=== PATIENT | male | born 1955 | race Caucasian/White ===

== ENCOUNTER 2018-10-01 15:17 | Emergency (ER) | payer OTHER ==
--- NOTE | 2018-10-01 16:16 | EDM.PDOC ---
ED HPI GENERAL MEDICAL PROBLEM - General Chief Complaint: Trauma Stated Complaint: KICKED BY A COW Time Seen by Provider: 10/01/18 16:00 Source of Information: Reports: Patient History Limitations: Reports: No Limitations - History of Present Illness INITIAL COMMENTS - FREE TEXT/NARRATIVE: Patient is a 63-year-old male presents ED complaining of left anterior knee pain. Patient states he was kicked by a cow on the medial aspect of his knee. Since then he has noted increasing pain with weight bearing. States he is unable to ambulate since it gives out. Pain is localized with no radiation. There is no sensorimotor deficits. He has no prior injury to the affected knee. Denies trauma to his head, neck, or back. Denies being trampled by the cow. Left Knee Pain Score (Numeric/FACES): 1 - Related Data Allergies Allergy/AdvReac Type Severity Reaction Status Date / Time No Known Allergies Allergy Verified 10/01/18 15:44 Home Meds: Home Meds Acetaminophen/HYDROcodone [[place] 325-5 MG] 1 tab PO Q6H PRN #12 tablet 10/01/18 [Rx] Bisoprolol/Hydrochlorothiazide [Bisoprolol/HCTZ 10-6.25 MG] 1 tab PO DAILY 10/01 [History] Losartan [Cozaar] 100 mg PO DAILY 10/01/18 [History] Omeprazole 20 mg PO DAILY 10/01/18 [History] Past Medical History HEENT History: Reports: Impaired Vision Cardiovascular History: Reports: Hypertension Gastrointestinal History: Reports: GERD - Past Surgical History Musculoskeletal Surgical History: Reports: Other (See Below) Other Musculoskeletal Surgeries/Procedures:: Broken rib Social & Family History - Family History Family Medical History: Noncontributory - Tobacco Use Smoking Status *Q: Never Smoker Second Hand Smoke Exposure: No - Caffeine Use Caffeine Use: Reports: None - Recreational Drug Use Recreational Drug Use: No Review of Systems - Review of Systems Review Of Systems: ROS reveals no pertinent complaints other than HPI. ED EXAM, GENERAL - Physical Exam Exam: See Below Exam Limited By: No Limitations General Appearance: Alert, WD/WN, No Apparent Distress Ears: Hearing Grossly Normal Nose: Normal Inspection Throat/Mouth: Normal Voice, No Airway Compromise Neck: Normal Inspection, Supple Respiratory/Chest: No Respiratory Distress, Lungs Clear, Normal Breath Sounds, No Accessory Muscle Use Cardiovascular: Normal Peripheral Pulses, Regular Rate, Rhythm, No Murmur Peripheral Pulses: 3+: Posterior Tibial (L), Dorsalis Pedis (L) Extremities: Other (Bony abdomen eyes noted to the patella with palpation with some increased swelling. Pain noted with palpation. Patient is able to flex and extend his knee with minimal discomfort. No provocative testing was obtained at this point. Will wait for imaging to come back to ascertain what type of bony abdomen eyes are present this point. If significant CT of the knee may be required. Pulses are intact. No sensorimotor deficits noted.) Neurological: Alert, Oriented, CN II-XII Intact, Normal Cognition, No Motor/ Sensory Deficits Psychiatric: Normal Affect, Normal Mood Skin Exam: Warm, Dry, Intact, Normal Color, No Rash Course - Vital Signs Last Recorded V/S: Last Vital Signs Temp 98.3 F 10/01/18 15:46 Pulse 60 10/01/18 15:46 Resp 14 10/01/18 15:46 BP 159/86 H 10/01/18 15:46 Pulse Ox 96 10/01/18 15:46 - Orders/Labs/Meds Orders: Active Orders 24 hr Category Date Time Status Knee 3V Lt [CR] Stat Exams 10/01/18 16:11 Taken Knee wo Cont Lt [CT] Stat Exams 10/01/18 16:40 Taken - Re-Assessments/Exams Free Text/Narrative Re-Assessment/Exam: Trauma minor called due to mechanism of injury. Patient has no other complaints upon examination. Discussed patient with Dr. Colon and he agrees with plan. X-ray of the left knee with sunrise view will be obtained. 10/01/18 16:40 X-ray of the left knee reviewed with Dr. Colon. Findings concerning for avulsion of quadricep tendon. Suggested CT of the left knee without. CT Knee Impression: 1. Multiple small bony densities which appear to be old. 2. Medial and lateral joint space narrowing. 3. Nothing acute is definitely appreciated. If patient's symptoms suggest possible soft tissue injury, MRI could be considered to further evaluate. Knee immobilizer applied with crutches. Patient will be discharged home with instructions as documented. Return precautions discussed with patient. Patient had no further questions or concerns. Departure - Departure Time of Disposition: 18:39 Disposition: Home, Self-Care 01 Condition: Good Clinical Impression: Left knee sprain Qualifiers: Encounter type: initial encounter Involved ligament of knee: unspecified ligament Qualified Code(s): S83.92XA - Sprain of unspecified site of left knee, initial encounter Quadriceps muscle rupture Qualifiers: Encounter type: initial encounter Laterality: left Qualified Code(s): S76.112A - Strain of left quadriceps muscle, fascia and tendon, initial encounter - Discharge Information Prescriptions: Acetaminophen/HYDROcodone [[place] 325-5 MG] 1 tab PO Q6H PRN #12 tablet PRN Reason: Pain (Severe 7-10) Instructions: Knee Sprain, Adult, [id number], Muscle Strain, [id number], Quadriceps Tendon Tear or Disruption Referrals: Deshawn Meredith MD [Primary Care Provider] - Chris Wells MD [Physician] - Forms: ED Department Discharge Additional Instructions: You are to be nonweightbearing, toe-touch only for balance, utilize crutches to ambulate. Elevate when able to reduce any swelling and pain. For mild to moderate pain take Tylenol and ibuprofen in alternating fashion. Apply ice to the affected area 3 times a day, 30 minutes in duration, do not apply ice directly on the skin. For severe pain take [place] one tab every 6 hours. Do not take [place] and Tylenol together. Do not drive while taking the [place]. Call and make an appointment to see orthopedic surgeon of your choice this coming week. Contact information for Dr. Wells has been provided. Please return back to the ED if he develops any new or worsening symptoms. - My Orders Last 24 Hours: My Active Orders 10/01/18 16:11 Knee 3V Lt [CR] Stat 10/01/18 16:40 Knee wo Cont Lt [CT] Stat - Assessment/Plan Last 24 Hours: My Active Orders 10/01/18 16:11 Knee 3V Lt [CR] Stat 10/01/18 16:40 Knee wo Cont Lt [CT] Stat
--- NOTE | 2018-10-02 08:24 | CR ---
Left knee: Three views of the left knee were obtained. Comparison: No previous left knee study. Slight medial joint space narrowing is seen. Small bony density is noted off the superior patella which appears to be old. No joint effusion is seen. No acute fracture or other abnormality is appreciated. Impression: 1. Incidental findings as noted above. Nothing acute is definitely appreciated. Diagnostic code #2
--- NOTE | 2018-10-03 07:43 | CT ---
CT left knee Technique: Multiple axial sections were obtained through the left knee. Reconstructed coronal and sagittal images were reviewed. Comparison: Previous plain film knee exam performed earlier on the same day (4: 16 PM). Findings: Small bony density is noted posteriorly off the lateral knee slightly above the fibular head. Other bony densities are seen posterior to the medial femoral condyle. Additional bony density is seen off the anterior aspect of the medial femoral condyle. These all appear well corticated and are felt to be old. Multiple calcifications are also seen off the superior patella which are felt to be old. Spurring is noted within the intercondylar notch as well as off the tibial spines. Medial and lateral joint space narrowing is seen. No acute fracture is appreciated. Impression: 1. Multiple small bony densities which appear to be old. 2. Medial and lateral joint space narrowing. 3. Nothing acute is definitely appreciated. If patient's symptoms suggest possible soft tissue injury, MRI could be considered to further evaluate. Diagnostic code #3 MTDD
== END 2018-10-01 18:50 | disposition home or self-care (01) ==
LOC: JD.ED 15:17
DX: S83.92XA Sprain of unspecified site of left knee, initial encounter (principal); S76.112A Strain of left quadriceps muscle, fascia and tendon, initial encounter; Z79.899 Other long term (current) drug therapy; I10 Essential (primary) hypertension; W55.22XA Struck by cow, initial encounter
CPT/HCPCS: 73562-26-LT; 73562-LT; 73700-26-LT; 73700-LT; 99284

== ENCOUNTER 2020-08-17 21:39 | Emergency (ER) | payer OTHER, MEDICARE ==
[2020-08-17] MEDS ORDERED: Diphtheria,Pertussis(Acell),Tetanus Vaccine 0.5 ML Syringe IM ONE (22:00)
[2020-08-17] MEDS ORDERED: Lidocaine 1% 10 ML MDV INJECT ONE (22:00)
[2020-08-17] MEDS ORDERED: Bupivacaine 0.5% 10 ML SDV INJECT ONE (22:00)
--- NOTE | 2020-08-17 22:46 | EDM.PDOC ---
ED HPI GENERAL MEDICAL PROBLEM - General Chief Complaint: Laceration Stated Complaint: LT RING FINGER LAC Time Seen by Provider: 08/17/20 21:49 Source of Information: Reports: Patient History Limitations: Reports: No Limitations - History of Present Illness INITIAL COMMENTS - FREE TEXT/NARRATIVE: Mr. Rosenberg is a very pleasant 65-year-old gentleman who now presents the ED after accidentally cutting the volar pad of the distal phalanx of his left 4th finger with a knife around noon today, while cutting open a can. He is otherwise uninjured. The patient does not recall when his last tetanus vaccination was, but states that it could easily be more than 10 years ago. Here in the ED, the patient's initial BP is found to be elevated at 168/86, otherwise, he is hemodynamically stable, afebrile, saturating 95% on room air. Other than his left 4th finger injury, the patient denies having a recent fever, chills, sore throat, ear pain, nasal or sinus congestion, cough, dyspnea, chest pain, palpitations, nausea, vomiting, constipation, diarrhea, abdominal pain, urinary symptoms, recent weight gain or weight loss, recent bloody bowel movements or black bowel movements, recent joint aches, headaches, or rashes. The patient's PCP is Dr. Deshawn Meredith. His Orthopedic Surgeon is Dr. Emiliano Tom. He received an influenza vaccine this season. - Related Data Allergies Allergy/AdvReac Type Severity Reaction Status Date / Time No Known Allergies Allergy Verified 08/17/20 21:48 Home Meds: Home Meds Acetaminophen/HYDROcodone [[place] 325-5 MG] 1 tab PO Q6H PRN #12 tablet 10/01/18 [Rx] Bisoprolol/Hydrochlorothiazide [Bisoprolol/HCTZ 10-6.25 MG] 1 tab PO DAILY 10/01/18 [History] Losartan [Cozaar] 100 mg PO DAILY 10/01/18 [History] Omeprazole 20 mg PO DAILY 10/01/18 [History] Past Medical History HEENT History: Reports: Impaired Vision Cardiovascular History: Reports: Hypertension Gastrointestinal History: Reports: GERD Musculoskeletal History: Reports: Osteoarthritis - Past Surgical History GI Surgical History: Reports: Appendectomy, Cholecystectomy (1989) Musculoskeletal Surgical History: Reports: Knee Replacement (left) Social & Family History - Family History Family Medical History: No Pertinent Family History - Tobacco Use Tobacco Use Status *Q: Former Tobacco User Tobacco Use Within Last Twelve Months: Smokeless Tobacco (Quit chewing tobacco 1989) Years of Tobacco use: 15 Packs/Tins Daily: 1.5 Month/Year Tobacco Last Used: Quit 1989 Second Hand Smoke Exposure: No - Caffeine Use Caffeine Use: Reports: Coffee - Alcohol Use Alcohol Use History: No - Recreational Drug Use Recreational Drug Use: No - Living Situation & Occupation Living situation: Reports: Single, with Significant Other (Girlfriend) Occupation: Employed ([employer]) ED ROS GENERAL - Review of Systems Review Of Systems: Comprehensive ROS is negative, except as noted in HPI. ED EXAM, SKIN/RASH Exam: See Below Exam Limited By: No Limitations General Appearance: Alert, WD/WN, No Apparent Distress Extremities: Other (There is an approximately 4.5 cm flap laceration to the volar aspect of the distal phalanx of the patient's left 4th finger. The wound is not actively bleeding. No tendon involvement. Neurovascular status of the left 4th finger is intact.) ED SKIN PROCEDURES - Laceration/Wound Repair Left Hand Appearance: Subcutaneous, Irregular (flap laceration), Clean Distal NVT: Neuro & Vascular Intact, No Tendon Injury Anesthetic Type: Digital Local Anesthesia - Lidocaine (Xylocaine): 1% Plain (50:50 admixture) Local Anesthesia - Bupivicaine (Marcaine): 0.5% Plain (50:50 admixture) Local Anesthetic Volume: 4cc Skin Prep: Providone-Iodine (Betadine) Exploration/Debridement/Repair: Wound Explored, In a Bloodless Field, Explored to Base, No Foreign Material Found Closed with: Sutures Lac/Wound length In cm: 4.5 Suture Size: 3-0 # of Sutures: 8 Suture Type: Nylon (Ethilon), Interrupted, Simple Sterile Dressing Applied: Nurse Tetanus Status Addressed: Yes Complications: No Course - Vital Signs Last Recorded V/S: Last Vital Signs Temp 36.6 C 08/17/20 21:46 Pulse 74 08/17/20 21:46 Resp 16 08/17/20 21:46 BP 168/86 H 08/17/20 21:46 Pulse Ox 95 08/17/20 21:46 - Orders/Labs/Meds Orders: Active Orders 24 hr Category Date Time Status Vaccines to be Administered [RC] PER UNIT ROUTINE Care 08/17/20 22:01 Active Meds: Medications Discontinued Medications Generic Name Dose Route Start Last Admin Trade Name Sheyla PRN Reason Stop Dose Admin Bupivacaine HCl 10 ml 08/17/20 22:00 08/17/20 22:45 Sensorcaine-Mpf 0.5% INJECT 08/17/20 22:01 10 ml ONETIME ONE Administration Diphtheria/Tetanus/Acell Pertussis 0.5 ml 08/17/20 22:00 Adacel IM 08/17/20 22:01 .ONCE ONE Lidocaine HCl 10 ml 08/17/20 22:00 12 22:45 Xylocaine 1% INJECT 08/17/20 22:01 10 ml ONETIME ONE Administration - Re-Assessments/Exams Free Text/Narrative Re-Assessment/Exam: 08/17/20 22:41 Following a digital block using a 50:50 admixture of bupivacaine 0.5% without lidocaine and lidocaine 1% without epinephrine, the patient achieved good local anesthesia. I closed the flap laceration with 8 simple interrupted sutures using 3-0 Ethilon. The patient tolerated the procedure well. The wound will be dressed by Maddi PALACIOS. I will prescribe Keflex via [facility]. Departure - Departure Time of Disposition: 22:44 Disposition: Home, Self-Care 01 Condition: Good Clinical Impression: Laceration of left ring finger - Discharge Information *PRESCRIPTION DRUG MONITORING PROGRAM REVIEWED*: Not Applicable *COPY OF PRESCRIPTION DRUG MONITORING REPORT IN PATIENT ELLI: Not Applicable Referrals: Deshawn Meredith MD [Primary Care Provider] - Emiliano Tom MD [Ordering Only Provider] - Forms: ED Department Discharge Additional Instructions: You were seen in the emergency room after cutting the pad of your left ring finger. Your wound was closed with 8 sutures in the ER. Keep the wound clean with ordinary soap and water when you bathe. Pat dry, then apply a clean bandage, daily. Do not soak the wound, such as in the bathtub or swimming. The sutures should be ready for removal by 08/26/2020. They can be r emoved at the walk-in clinic, by a nurse at your doctor's office, or the in the ER. You have been prescribed the antibiotic Keflex. Take 1 tablet of Keflex every 12 hours, as prescribed. Finish the entire prescription unless told otherwise by your doctor. The wound should not get infected, however, if there are any concerns, such as significant swelling, redness, inordinate pain, or drainage, please either follow-up with your PCP, Dr. Deshawn Meredith, or return to the ER for reevaluation. Sepsis Event Note (ED) - Evaluation Sepsis Screening Result: No Definite Risk - Focused Exam Vital Signs: Vital Signs Temp Pulse Resp BP Pulse Ox 08/17/20 21:46 36.6 C 74 16 168/86 H 95 - My Orders Last 24 Hours: My Active Orders 08/17/20 22:01 Vaccines to be Administered [RC] PER UNIT ROUTINE - Assessment/Plan Last 24 Hours: My Active Orders 08/17/20 22:01 Vaccines to be Administered [RC] PER UNIT ROUTINE
== END 2020-08-17 23:05 | disposition home or self-care (01) ==
LOC: EDBD 21:39 → JD.ED 21:39
DX: S61.215A Laceration without foreign body of left ring finger without damage to nail, initial encounter (principal); I10 Essential (primary) hypertension; K21.9 Gastro-esophageal reflux disease without esophagitis; Z79.899 Other long term (current) drug therapy; Z87.891 Personal history of nicotine dependence; Z23 Encounter for immunization; W26.0XXA Contact with knife, initial encounter
CPT/HCPCS: 12002; 90471; 99282; J2001; J3490; 99283

== ENCOUNTER 2023-02-09 16:38 | Emergency (ER) | payer MEDICARE, OTHER ==
[2023-02-09] MEDS ORDERED: Sodium Chloride 0.9% 10 ML Syringe FLUSH PRN (17:31)
[2023-02-09 18:14] LABS: HEMATOCRIT 41.3 % (40.1-51.0); HEMOGLOBIN 14.3 gm/dl (13.7-17.5); MEAN CORPUSCULAR HEMOGLOBIN 29.8 pg (25.7-32.2); MEAN CORPUSCULAR HGB CONC 34.6 g/dl (32.2-35.5); MEAN PLATELET VOLUME 10.7 fl (9.4-12.3); PLATELET COUNT,PLT 298 K/mm3 (163-337); WHITE BLOOD CELL COUNT,WBC 8.79 K/mm3 (4.23-9.07)
[2023-02-09 18:29] LABS: BAND PERCENT MAN 3 % (0-10); BASOPHILS PERCENT MAN 0 (0.2-1.2); EOSINOPHILS PERCENT MAN 0 % (0.8-7.0); LYMPHOCYTES % ATYPICAL MANUAL 2 %; LYMPHOCYTES PERCENT MAN 13 % (20-40); MONOCYTES PERCENT MAN 6 % (2-10)
[2023-02-09 18:31] LABS: INR 1.05; PROTHROMBIN TIME 11.2 SECONDS (9.7-12.0)
[2023-02-09 18:33] LABS: PLATELET COUNT ESTIMATE ADEQUATE
[2023-02-09 18:49] LABS: A/G RATIO 0.9 (1-2); ALANINE AMINOTRANSFERASE,ALT 57 U/L (16-63); ALBUMIN 3.5 g/dl (3.4-5.0); ALKALINE PHOSPHATASE 85 U/L (46-116); ANION GAP 13.8 (5-15); ASPARTATE AMNIOTRANSFERASE,AST 41 U/L (15-37); BILIRUBIN TOTAL 0.6 mg/dL (0.2-1.0); BLOOD UREA NITROGEN,BUN 21 mg/dL (7-18); BUN/CREATININE RATIO 19.1 (14-18); CALCIUM 8.9 mg/dL (8.5-10.1); CARBON DIOXIDE,CO2 26 mEq/L (21-32); CHLORIDE,CL 102 mEq/L (98-107); CREATINE KINASE,CK 95 U/L (39-308); CREATININE 1.1 mg/dL (0.7-1.3); ESTIMATED GFR 73 mL/min (>60); GLUCOSE RANDOM 191 mg/dL (70-99); MAGNESIUM 1.5 mg/dL (1.8-2.4); POTASSIUM,K 3.8 mEq/L (3.5-5.1); PROTEIN TOTAL,TP 7.6 g/dl (6.4-8.2); SODIUM,NA 138 mEq/L (136-145); TROPONIN I HIGH SENSITIVITY 6 pg/mL (<=76); TSH 1.586 uIU/mL (0.358-3.74)
[2023-02-09] MEDS ORDERED: Iopamidol 755 Mg/ML 100 ML Bottle IVPUSH ONE (20:08)
[2023-02-09 20:11] LABS: APPEARANCE,URINE CLEAR (Clear); BILIRUBIN,URINE NEGATIVE (Negative); COLOR,URINE YELLOW (Yellow); GLUCOSE,URINE NEGATIVE (Negative); KETONES,URINE NEGATIVE (Negative); LEUKOCYTE ESTERASE,URINE NEGATIVE (Negative); NITRITE,URINE NEGATIVE (Negative); OCCULT BLOOD,URINE NEGATIVE (Negative); PH,URINE 5.5 (5.0-8.0); PROTEIN,URINE TRACE (Negative); UROBILINOGEN,URINE 0.2 (0.2-1.0)
[2023-02-09] MEDS ORDERED: Sodium Chloride 0.9% 100 ML IV SCH (20:15)
[2023-02-09 20:33] LABS: BARBITURATE SCREEN,URINE NEGATIVE (CUTOFF=200); BENZODIAZEPINES SCREEN,URINE NEGATIVE (CUTOFF=150); BUPRENORPHINE SCREEN,URINE NEGATIVE (CUTOFF=10); METHADONE SCREEN, URINE NEGATIVE (CUT0FF=200); METHAMPHETAMINES SCREEN, URINE NEGATIVE (CUTOFF=500); OXYCODONE SCREEN,URINE NEGATIVE (CUT0FF=100); PROPOXYPHENE SCREEN,URINE NEGATIVE (CUTOFF=300); THC SCREEN,URINE 20 NG/ML NEGATIVE (CUTOFF=50)
[2023-02-09 20:36] LABS: AMPHETAMINES SCREEN, URINE NEGATIVE (CUTOFF=500)
[2023-02-09 20:54] LABS: AMORPHOUS SEDIMENT,URINE FEW /hpf (NOT SEEN); BACTERIA,URINE FEW /hpf (FEW); MUCUS,URINE RARE /hpf (FEW); RBC,URINE 0-5 /hpf (0-5); SQUAMOUS EPITHELIAL CELLS,UR 0-5 /hpf (0-5); WBC,URINE 0-5 /hpf (0-5)
== END 2023-02-09 21:15 | disposition home or self-care (01) ==
LOC: JD.ED 16:38
DX: R42 Dizziness and giddiness (principal); I10 Essential (primary) hypertension; K21.9 Gastro-esophageal reflux disease without esophagitis; M19.90 Unspecified osteoarthritis, unspecified site; Z79.899 Other long term (current) drug therapy; Z86.16 Personal history of COVID-19; W17.89XA Other fall from one level to another, initial encounter
CPT/HCPCS: 36415; 70450; 71045; 71275; 80053; 80306; 80307; 81001; 82550; 82947; 83735; 84443; 84484; 85007; 85027; 85379; 85610; 85730; 93005; 96360; 99285; J3490; Q9967

== ENCOUNTER 2023-02-10 17:57 | Emergency (ER) | payer MEDICARE ==
[2023-02-10 18:34] LABS: BASOPHILS ABSOLUTE AUTO 0.01 K/mm3 (0.01-0.08); BASOPHILS PERCENT AUTO 0.1 % (0.1-1.2); EOSINOPHILS ABSOLUTE AUTO 0.09 K/mm3 (0.04-0.54); EOSINOPHILS PERCENT AUTO 1.1 (0.8-7.0); HEMATOCRIT 41.9 % (40.1-51.0); HEMOGLOBIN 14.5 gm/dl (13.7-17.5); IMMATURE GRAN ABSOLUTE AUTO 0.05 K/mm3 (0.00-0.10); IMMATURE GRAN PERCENT AUTO 0.6 % (<=1.0); LYMPHOCYTES ABSOLUTE AUTO 1.31 K/mm3 (1.32-3.57); LYMPHOCYTES PERCENT AUTO 15.4 % (21.8-53.1); MEAN CORPUSCULAR HEMOGLOBIN 29.8 pg (25.7-32.2); MEAN CORPUSCULAR HGB CONC 34.6 g/dl (32.2-35.5); MEAN CORPUSCULAR VOLUME 86.2 fl (79.0-92.2); MONOCYTES ABSOLUTE AUTO 1.07 K/mm3 (0.30-0.82); MONOCYTES PERCENT AUTO 12.6 % (5.3-12.2); NEUTROPHILS ABSOLUTE AUTO 5.97 K/mm3 (1.78-5.38); NEUTROPHILS PERCENT AUTO 70.2 % (34.0-67.9); PLATELET COUNT,PLT 306 K/mm3 (163-337); RED BLOOD CELL COUNT 4.86 M/mm3 (4.63-6.08)
[2023-02-10 19:03] LABS: INR 1.02; PROTHROMBIN TIME 10.9 SECONDS (9.7-12.0)
[2023-02-10 19:17] LABS: ANION GAP 14.7 (5-15); CREATININE 1.1 mg/dL (0.7-1.3); POTASSIUM,K 3.7 mEq/L (3.5-5.1)
[2023-02-10 19:18] LABS: A/G RATIO 0.9 (1-2); ALBUMIN 3.6 g/dl (3.4-5.0); BILIRUBIN TOTAL 0.5 mg/dL (0.2-1.0); BUN/CREATININE RATIO 18.2 (14-18); CALCIUM 9.1 mg/dL (8.5-10.1); EST CRCL DRUG DOSING (CG) 65.44 mL/min; MAGNESIUM 1.8 mg/dL (1.8-2.4); PROTEIN TOTAL,TP 7.8 g/dl (6.4-8.2)
[2023-02-10 20:24] LABS: APPEARANCE,URINE CLEAR (Clear); BILIRUBIN,URINE NEGATIVE (Negative); COLOR,URINE YELLOW (Yellow); GLUCOSE,URINE NEGATIVE (Negative); KETONES,URINE TRACE (Negative); LEUKOCYTE ESTERASE,URINE NEGATIVE (Negative); NITRITE,URINE NEGATIVE (Negative); OCCULT BLOOD,URINE NEGATIVE (Negative); PH,URINE 5.5 (5.0-8.0); PROTEIN,URINE 1+ (Negative)
[2023-02-10 20:30] LABS: BACTERIA,URINE MANY /hpf (FEW); HYALINE CASTS,URINE 0-5 /lpf (0-5); RBC,URINE 0-5 /hpf (0-5); SQUAMOUS EPITHELIAL CELLS,UR 0-5 /hpf (0-5)
[2023-02-10 20:31] LABS: AMORPHOUS SEDIMENT,URINE FEW /hpf (NOT SEEN); BARBITURATE SCREEN,URINE NEGATIVE (CUTOFF=200); BENZODIAZEPINES SCREEN,URINE NEGATIVE (CUTOFF=150); BUPRENORPHINE SCREEN,URINE NEGATIVE (CUTOFF=10); METHADONE SCREEN, URINE NEGATIVE (CUT0FF=200); METHAMPHETAMINES SCREEN, URINE NEGATIVE (CUTOFF=500); MUCUS,URINE MANY /hpf (FEW); OXYCODONE SCREEN,URINE NEGATIVE (CUT0FF=100); PROPOXYPHENE SCREEN,URINE NEGATIVE (CUTOFF=300); THC SCREEN,URINE 20 NG/ML NEGATIVE (CUTOFF=50)
[2023-02-10 20:33] LABS: AMPHETAMINES SCREEN, URINE NEGATIVE (CUTOFF=500)
== END 2023-02-10 22:57 | disposition home or self-care (01) ==
LOC: JD.ED 17:57
DX: Z04.3 Encounter for examination and observation following other accident (principal); I10 Essential (primary) hypertension; K21.9 Gastro-esophageal reflux disease without esophagitis; Z79.899 Other long term (current) drug therapy; Z86.16 Personal history of COVID-19
CPT/HCPCS: 36415; 70450; 70450-26; 71045; 71045-26; 73020-26-LT; 73020-LT; 80053; 80306; 81001; 82947; 83735; 84484; 85025; 85610; 93005; 93010; 99282; 99284